=== PATIENT | female | born 1975 | race Caucasian/White ===

== ENCOUNTER 2019-01-09 14:39 | Emergency (ER) | payer MEDICAID ==
[~2019-01-09] VITALS: Ht 160 cm; Wt 74.8 kg
[2019-01-09 14:42] VITALS: Ht 160 cm; Wt 74.8 kg
[2019-01-09 16:38] VITALS: BP 122/65
== END 2019-01-09 16:38 | disposition home or self-care (01) ==
LOC: ED 14:39
DX: S93.401A Sprain of unspecified ligament of right ankle, initial encounter (principal); E11.9 Type 2 diabetes mellitus without complications; W10.8XXA Fall (on) (from) other stairs and steps, initial encounter; Y93.89 Activity, other specified; Y92.89 Other specified places as the place of occurrence of the external cause; Y99.8 Other external cause status
CPT/HCPCS: 82962

== ENCOUNTER 2019-09-30 12:52 | Emergency (ER) | payer MEDICAID ==
[~2019-09-30] VITALS: Ht 165.1 cm; Wt 72.1 kg
[2019-09-30 12:59] VITALS: Ht 165.1 cm; Wt 72.1 kg
[2019-09-30 14:57] VITALS: BP 133/61
== END 2019-09-30 14:57 | disposition home or self-care (01) ==
LOC: ED 12:52
DX: G44.209 Tension-type headache, unspecified, not intractable (principal); I10 Essential (primary) hypertension; E11.9 Type 2 diabetes mellitus without complications
CPT/HCPCS: 82962; J1885; J2765; Q0092